=== PATIENT | male | born 1945 | race African-American/Black ===

== ENCOUNTER 2022-07-04 16:36 | Emergency (ER) | payer MEDICARE ==
[~2022-07-04] VITALS: Ht 177.8 cm; Wt 104.0 kg
[2022-07-04 17:40] LABS: BASOPHILS % 0.9 % (0.0-2.0); EOSINOPHILS % 3.3 % (0.0-5.0); HEMATOCRIT. 35.2 % (42.0-52.0); HEMOGLOBIN. 11.8 g/dL (14.0-18.0); LYMPHOCYTES % 28.9 % (20.0-50.0); MEAN CORPUSCULAR HEMOGLOBIN 28.5 pg (28.0-32.0); MEAN PLATELET VOLUME 7.5 fl (7.4-10.4); MONOCYTES % 10.9 % (2.0-8.0); PLATELET 235 x1000/uL (130-400); RED BLOOD CELL COUNT 4.14 mill/uL (4.7-6.1); RED CELL DISTRIBUTION WIDTH 13.3 % (11.6-14.6)
[2022-07-04] MEDS ORDERED: MORPHINE SULFATE 4 MG/ML CPJ (NOT FOR IM USE) IV ONE (17:45)
[2022-07-04] MEDS ORDERED: MAGNESIUM/ALUMINUM HYDROXIDE/SIMETHICONE 30ML UDC PO ONE (17:45)
[2022-07-04] MEDS ORDERED: MAGNESIUM/ALUMINUM HYDROXIDE/SIMETHICONE 30ML UDC PO NR (17:45)
[2022-07-04] MEDS ORDERED: FAMOTIDINE 20MG/2ML VIAL IV ONE (17:45)
[2022-07-04] MEDS ORDERED: VISCOUS LIDOCAINE 2% 15 ML UDC MM ONE (17:45)
[2022-07-04] MEDS ORDERED: VISCOUS LIDOCAINE 2% 15 ML UDC MM NR (17:45)
[2022-07-04 17:50] LABS: CHLORIDE 110 mEq/L (98-107)
[2022-07-04 17:55] LABS: INR 1.1; PROTHROMBIN TIME 11.4 sec (9.6-11.0)
[2022-07-04] MEDS ORDERED: KETOROLAC 30MG/ML VIAL IV ONE (20:30)
[2022-07-04] MEDS ORDERED: FAMOTIDINE 20MG TABLET PO ONE (21:00)
[2022-07-04] MEDS ORDERED: KETOROLAC 60MG/2ML VIAL IM ONE (21:00)
[2022-07-04] MEDS ORDERED: MORPHINE SULFATE 10 MG/ML CPJ IM ONE (21:00)
[2022-07-04 22:17] VITALS: BP 171/89
== END 2022-07-04 22:30 | disposition home or self-care (01) ==
LOC: ER 16:36
DX: R07.89 Other chest pain (principal)
CPT/HCPCS: 36415; 71045; 80053; 83690; 83880; 84484; 85025; 85610; 93005; 96372; 99285; J1885; J2270